=== PATIENT | male | born 1980 | race American Indian/Alaskan Native ===

== ENCOUNTER 2017-04-23 19:46 | Emergency (ER) | payer BC ==
[2017-04-23 20:06] VITALS: BMI 38.0
--- NOTE | 2017-04-23 20:20 | ED PDOC ---
Arrival/HPI - General Chief Complaint: Abdominal Pain Time Seen by Provider: 04/23/17 20:05 Historian: Patient - History of Present Illness Narrative History of Present Illness (Text): 04/23/17 20:10 A 36 year old male, who denies any significant past medical history, presents to the emergency department for abdominal discomfort, which began 1 week ago. The patient reports that he has a pressure-like discomfort in his abdomen that radiated to his back. He notes that he has also had diarrhea, but associated it as a result of taking citric magnesium, due to the fact he thought he was constipated. The patient denies any trauma to the area, nausea, vomiting, fever , chills, appetite changes, urinary or bowel changes, chest pain, or any other complaints at this time. Time/Duration: 1 week Symptom Onset: Sudden Symptom Course: Unchanged Quality: Pressure Activities at Onset: Light Context: Home Past Medical History - Provider Review Nursing Documentation Reviewed: Yes - Infectious Disease Hx of Infectious Diseases: None - Psychiatric Hx Substance Use: No - Surgical History Other/Comment: Hernia repair 3yrs ago - Anesthesia Hx Anesthesia: No Hx Anesthesia Reactions: No Hx Malignant Hyperthermia: No Family/Social History - Physician Review Nursing Documentation Reviewed: Yes Family/Social History: No Known Family HX Smoking Status: On occc Hx Alcohol Use: Yes Frequency of alcohol use: Socially Hx Substance Use: No Allergies/Home Meds Allergies/Adverse Reactions: Allergies No Known Allergies Allergy (Unverified 04/23/17 20:07) Home Medications: Home Meds Medication Instructions Recorded Confirmed No Known Home Med 04/23/17 04/23/17 Review of Systems - Physician Review All systems were reviewed & negative as marked: Yes - Review of Systems Constitutional: absent: Fevers, Other (chills ) Gastrointestinal: Abdominal Pain, Diarrhea. absent: Stool Changes, Nausea, Vomiting, Appetite Changes Genitourinary Male: absent: Dysuria, Urinary Output Changes Musculoskeletal: Back Pain Physical Exam Vital Signs Reviewed: Yes Vital Signs Temp Pulse Resp BP Pulse Ox 04/23/17 21:46 98.5 F 65 17 120/65 100 04/23/17 20:06 98 F 63 16 148/78 96 04/23/17 19:46 98.6 F 68 16 119/69 100 Temperature: Afebrile Blood Pressure: Normal Pulse: Regular Respiratory Rate: Normal Appearance: Positive for: Well-Appearing, Non-Toxic, Comfortable Pain Distress: None Mental Status: Positive for: Alert and Oriented X 3 - Systems Exam Head: Present: Atraumatic, Normocephalic Pupils: Present: PERRL Extroacular Muscles: Present: EOMI Conjunctiva: Present: Normal Mouth: Present: Moist Mucous Membranes Neck: Present: Normal Range of Motion Respiratory/Chest: Present: Clear to Auscultation, Good Air Exchange. No: Respiratory Distress, Accessory Muscle Use Cardiovascular: Present: Regular Rate and Rhythm, Normal S1, S2. No: Murmurs Abdomen: Present: Normal Bowel Sounds. No: Tenderness, Distention, Peritoneal Signs Back: Present: Normal Inspection Upper Extremity: Present: Normal Inspection. No: Cyanosis, Edema Lower Extremity: Present: Normal Inspection. No: Edema Neurological: Present: GCS=15, CN II-XII Intact, Speech Normal Skin: Present: Warm, Dry, Normal Color. No: Rashes Psychiatric: Present: Alert, Oriented x 3, Normal Insight, Normal Concentration Medical Decision Making ED Course and Treatment: 04/23/17 20:33 Impression: A 36 year old male with abdominal pain. Differential Diagnosis included but are not limited to: Plan: -- Abd & Pel CT -- Labs -- IV Fluids -- Reassess and disposition Progress Notes: 04/23/17 23:09 CT Abdomen and Pelvis: The liver is normal. The spleen is normal. The pancreas is normal. No gallstones. No hydronephrosis or perinephric stranding. Hypoattenuating left renal lesion too small to characterize however I suspect a cyst. There is a 2.5 x 1.5 cm rounded lesion abutting the left adrenal gland possible adenoma although definitive characterization could be performed with MRI if not done previously and assuming there are no priors to assess for stability. Urinary bladder appears normal. Diverticulosis. A normal appendix is identified axial images 132 through 142 coronal images 30 through a 33. IMPRESSION: No acute findings. Dictated and Authenticated by: Kathleen Townsend MD - Lab Interpretations Lab Results: 04/23/17 20:50 04/23/17 20:50 Lab Results 04/23/17 21:30: Urine Color Yellow, Urine Appearance Clear, Urine pH 6.0, Ur Specific Ava >= 1.030, Urine Protein 30 H, Urine Glucose (UA) Negative, Urine Ketones Negative, Urine Blood Trace-lysed H, Urine Nitrate Negative, Urine Bilirubin Negative, Urine Urobilinogen 1.0 H, Ur Leukocyte Esterase Negative, Urine RBC 0 - 2, Urine WBC 1 - 3, Ur Epithelial Cells 1 - 3, Urine Bacteria Few 04/23/17 20:50: WBC 6.7, RBC 4.88, Hgb 14.2, Hct 42.4, MCV 86.9, MCH 29.1, MCHC 33.5, RDW 14.3, Plt Count 207, MPV 10.8 04/23/17 20:50: Sodium 140, Potassium 3.6, Chloride 103, Carbon Dioxide 27, Anion Gap 13, BUN 19, Creatinine 1.0, Est GFR ( Amer) > 60, Est GFR (Non- Af Amer) > 60, Random Glucose 99, Calcium 9.1, Total Bilirubin 0.5, AST 27, ALT 33, Alkaline Phosphatase 45, Total Protein 7.3, Albumin 4.1, Globulin 3.2, Albumin/Globulin Ratio 1.3, Lipase 110 - RAD Interpretation Radiology Orders: 04/23/17 20:32 ABD & PELVIS IV CONTRAST ONLY [CT] Stat Healthcare Account Manager: Radiologist - Medication Orders Current Medication Orders: Sodium Chloride (Sodium Chloride 0.9%) 1,000 mls @ 100 mls/hr IV .Q10H PAU Last Admin: 04/23/17 21:00 Dose: 100 mls/hr eMAR Start Stop Document 04/23/17 21:00 AB (Rec: 04/23/17 21:01 AB [facility] [id number]) Intravenous Solution Start Date 04/23/17 Start Time 21:01 - Scribe Statement The provider has reviewed the documentation as recorded by the Yfn Green Provider Scribe Attestation: All medical record entries made by the Scribe were at my direction and personally dictated by me. I have reviewed the chart and agree that the record accurately reflects my personal performance of the history, physical exam, medical decision making, and the department course for this patient. I have also personally directed, reviewed, and agree with the discharge instructions and disposition. Disposition/Present on Arrival - Present on Arrival Any Indicators Present on Arrival: No History of DVT/PE: No History of Uncontrolled Diabetes: No Urinary Catheter: No History of Decub. Ulcer: No History Surgical Site Infection Following: None - Disposition Have Diagnosis and Disposition been Completed?: Yes Diagnosis: Abdominal pain, Paresthesias Disposition: HOME/ ROUTINE Disposition Time: 23:41 Patient Plan: Discharge Condition: STABLE Discharge Instructions (ExitCare): Abdominal Pain (ED), Paresthesia (ED) Additional Instructions: Follow up with your doctor this week/any recurrent worsening symptoms return to the emergency room Referrals: Guero Rdz MD [Staff Provider] - Follow up with primary Forms: [employer] ([place])
[2017-04-23] MEDS ORDERED: Sodium Chloride 0.9% 1,000 ML IV SCH (20:45)
[2017-04-23 21:16] LABS: HEMATOCRIT 42.4 % (42.0-52.0); MEAN CELL VOLUME 86.9 fl (80.0-105.0); MEAN CORPUSCULAR HEMOGLOBIN 29.1 pg (25.0-35.0); MEAN CORPUSCULAR HGB CONC 33.5 g/dl (31.0-37.0); MEAN PLATELET VOLUME 10.8 fl (7.0-11.0); RED CELL DISTRIBUTION WIDTH 14.3 % (11.5-14.5); WHITE BLOOD COUNT 6.7 10^3/ul (4.5-11.0)
[2017-04-23] MEDS ORDERED: Iohexol 350 MG/100 ML VIAL ONE (21:22)
[2017-04-23 21:33] LABS: ALB/GLOB RATIO 1.3 (1.1-1.8); ALKALINE PHOSPHATASE 45 U/L (38-126); ALT/SGPT 33 U/L (7-56); AST/SGOT 27 U/L (17-59); BILIRUBIN,TOTAL 0.5 mg/dL (0.2-1.3); BLOOD UREA NITROGEN 19 mg/dL (7-21); CALCIUM 9.1 mg/dL (8.4-10.5); CARBON DIOXIDE 27 mmol/L (21-33); CHLORIDE 103 mmol/L (98-107); GFR AFRICAN-AMERICAN > 60; GLUCOSE,RANDOM 99 mg/dL (70-110); LIPASE 110 U/L (23-300); POTASSIUM 3.6 mmol/L (3.6-5.0); SODIUM 140 mmol/L (132-148); TOTAL PROTEIN 7.3 g/dL (5.8-8.3)
[2017-04-23 21:49] VITALS: TEMP 98.5; O2SAT 100
[2017-04-23 22:03] LABS: URINE BILIRUBIN NEGATIVE (NEGATIVE); URINE BLOOD TRACE-LYSED (NEGATIVE); URINE GLUCOSE (UA) NEGATIVE (NEGATIVE); URINE KETONE NEGATIVE (NEGATIVE); URINE LEUKOCYTE ESTERASE NEGATIVE Leu/uL (NEGATIVE); URINE PROTEIN 30 mg/dL (<30 mg/dL)
[2017-04-23 22:06] LABS: URINE APPEARANCE CLEAR (CLEAR); URINE COLOR YELLOW (YELLOW)
[2017-04-23 22:14] LABS: URINE RBC 0 - 2 /hpf (0-2)
[2017-04-23 22:15] LABS: URINE BACTERIA FEW (NEG)
--- NOTE | 2017-04-23 22:58 | CT ---
EXAM: CT Abdomen and Pelvis With Intravenous Contrast EXAM DATE/TIME: 04/23/2017 8:32 PM CLINICAL HISTORY: 36 years old, male; Pain; Abdominal pain; Localized; Lower TECHNIQUE: Axial computed tomography images of the abdomen and pelvis with intravenous contrast. All CT scans at this facility use one or more dose reduction techniques, viz.: automated exposure control; ma/kV adjustment per patient size (including targeted exams where dose is matched to indication; i.e. head); or iterative reconstruction technique. Coronal and sagittal reformatted images were created and reviewed. CONTRAST: 100 mL of OMNI administered intravenously. COMPARISON: No relevant prior studies available. FINDINGS: The liver is normal. The spleen is normal. The pancreas is normal. No gallstones. No hydronephrosis or perinephric stranding. Hypoattenuating left renal lesion too small to characterize however I suspect a cyst. There is a 2.5 x 1.5 cm rounded lesion abutting the left adrenal gland possible adenoma although definitive characterization could be performed with MRI if not done previously and assuming there are no priors to assess for stability. Urinary bladder appears normal. Diverticulosis. A normal appendix is identified axial images 132 through 142 coronal images 30 through a 33. IMPRESSION: No acute findings.
[2017-04-24 00:14] VITALS: BP 118/85; PULSE 70; RESP 16
== END 2017-04-24 00:14 | disposition home or self-care (01) ==
LOC: ED 19:46
DX: R10.9 Unspecified abdominal pain (principal); R20.2 Paresthesia of skin
CPT/HCPCS: 74177; 80053; 81001; 83690; 85027; 99283; J7040; Q9967